=== PATIENT | female | born 1965 | race Caucasian/White ===

== ENCOUNTER 2019-03-12 15:54 | Emergency (ER) | payer BC, OTHER, SELFPAY ==
[2019-03-12 15:58] VITALS: BP 121/72; PULSE 70; RESP 14; TEMP 36.7; O2SAT 96
--- NOTE | 2019-03-12 16:34 | DI.RAD_ITS ---
EXAM: XR ANKLE RT COMPLETE INDICATION: anterior lateral ankle pain/swelling. COMPARISON: No exams were available for comparison TECHNIQUE: 2D digital imaging was performed. FINDINGS: There is soft tissue swelling around the lateral malleolus. No acute fracture or ankle mortise widen ing is seen. There are ossifications seen on the lateral view posteriorly. No talar dome defect is seen. IMPRESSION: No acute abnormality.
--- NOTE | 2019-03-12 16:46 | ED.GENADUL_ITS ---
Discharge Plan Disposition Patient Disposition: HOME Discharge Details Chief Complaint: Orthopedic Clinical Impression: Right ankle sprain Primary Care Provider: None,None ED Provider: Kiko Houston Home Meds and New Rx's Prescriptions: No Action No Known Home Meds RF: 0 Discharge Instructions Instructions: Ankle Sprain (ED) Additional Instructions: X-rays were negative for acute injury. Questionable old bony injury. No indication for prolonged casting or splinting. Keep walker boot on for the next 5 to 7 days for comfort. Use crutches as needed. Follow-up with orthopedics should symptoms persist. Ice and elevate the limb as tolerated. Referrals: Marshal Donis MD [ [facility] STAFF PHYSICIAN] - 2 weeks Discharge Data Discharge Date/Time-TO BE ENTERED AT DEPARTURE: 03/12/19 17:45 Medical Decision Making This is a nontoxic-appearing 53-year-old female presenting to the emergency department with right ankle injury. Neurovascularly intact. Vitals stable. X- rays show questionable avulsion fracture most likely chronic of the lateral malleolus. She is slightly tender over the lateral mall but more prominently tender over the ATFL. Long Ortho boot provided and crutches given. She should follow-up with orthopedics as should her pain/symptoms persist over the next 2 weeks. HPI General Date/Time Provider Initiated Documentation: 03/12/19 16:34 . HPI Narrative: Patient is a 53-year-old female with no significant past medical history who presents to the emergency department with a right ankle injury. Patient stepped off a step and onto a dog toy and inverted her right ankle. No other injuries identified. She had anterior lateral swelling of her right ankle. She is been able to ambulate with significant discomfort. She denies any numbness or tingling. She does have some tenderness along the base of her foot. Related Data Home Medications Medication Instructions Recorded Confirmed Unknown [No Known Home Meds] 03/12/19 03/12/19 Allergies Allergy/AdvReac Type Severity Reaction Status Date / Time grass pollen AdvReac Mild runny Unverified 03/12/19 16:06 nose/watery eyes Latex, Natural Rubber AdvReac Mild runny Unverified 03/12/19 16:06 nose/watery eyes tree and shrub pollen AdvReac Mild runny Unverified 03/12/19 16:06 nose/watery eyes General Stated Complaint: Orthopedic FRANCESCA: 4 Review of Systems Constitutional Constitutional: Denies weakness Cardiovascular Cardiovascular: Denies lightheadedness Musculoskeletal Musculoskeletal: Reports abnormal gait, Reports joint swelling, Denies numbness and Denies tingling Neurologic Neurologic: Reports abnormal gait, Denies numbness, Denies tingling and Denies weakness Hematologic/Lymphatic Hematologic/Lymphatic: Denies easy bleeding and Denies easy bruising [facility] Social History Smoking/Tobacco Use Status: Never Alcohol Intake: current Alcohol Intake frequency: holidays/special occasions only Drug use: Daily Substance use type: marijuana Do you feel safe at home: Yes Do you feel safe in your relationship?: Yes Exam Const General: cooperative, healthy appearing and comfortable Orientation: alert and awake Resp Effort & Inspection: normal respiratory effort and able to speak in complete sentences Cardio Pulses: normal peripheral pulses Skin Trauma: no lacerations or abrasions Neuro Gait: antalgic Motor: muscle tone normal throughout Sensory Exam: no sensory deficits noted Extrem Right lower extremity: ankle Details: tenderness Location: of the lateral malleolus and swelling Details: laterally and anteriorly and foot Details: tenderness Location: of the lateral foot Location: proximally and at the base of 5th metatarsal Course Vital Signs Vital signs: Vital Signs Temperature 36.7 C 03/12/19 15:58 Pulse 70 03/12/19 15:58 Respiratory Rate 14 03/12/19 15:58 Blood Pressure 121/72 03/12/19 15:58 Pulse Oximetry 96 03/12/19 15:58 Temperature 36.7 C 03/12/19 15:58 Temperature Source Skin 03/12/19 15:58 Pulse 70 03/12/19 15:58 Respiratory Rate 14 03/12/19 15:58 Respiratory Effort 03/12/19 16:06 Blood Pressure 121/72 03/12/19 15:58 Blood Pressure Position Sitting 03/12/19 15:58 Pulse Oximetry 96 03/12/19 15:58 Oxygen Delivery Method Room Air 03/12/19 15:58 Oxygen Flow Rate 0 03/12/19 15:58 Pain Level 0 03/12/19 15:58 Comment any pressure or weight bearing increases to 710 03/12/19 15:58
--- NOTE | 2019-03-12 16:53 | DI.RAD_ITS ---
EXAM: XR FOOT RT COMPLETE INDICATION: lateral foot pain s/p inversion injury. COMPARISON: XR ANKLE RT COMPLETE from 03/12/2019 TECHNIQUE: 2D digital imaging was performed. FINDINGS: There is an old fracture of the lateral malleolus. There is surrounding soft tissue swelling. No de finite acute fracture is seen. The remainder of the foot is unremarkable. There are no significant de generative changes. IMPRESSION: Old fracture at the tip of the lateral malleolus.
[2019-03-12 17:08] VITALS: BP 111/70; PULSE 70; O2SAT 100
--- NOTE | 2019-03-12 17:27 | DI.VRAD_ITS ---
PROCEDURE INFORMATION: Exam: XR Right Ankle Exam date and time: 03/12/2019 4:58 PM Clinical history: 53 years old, female; Other: Lateral foot pain S/P inversion injury TECHNIQUE: Imaging protocol: XR Right ankle. Views: 3 or more views. COMPARISON: No relevant prior studies available. FINDINGS: Bones/joints: No acute fracture or dislocation. There is mild deformity of the tip of the lateral meniscus is within old fracture deformity. Ankle mortise is symmetric. There appears to be a 8mm os trigonum. Inferior to this and just cephalad to the calcaneus appears be 2 osseous fragments each measuring roughly 5 mm. These are well-corticated and probably represent old fracture fragments. Soft tissues: Moderate soft tissue swelling over lateral malleolus. There is no radiopaque foreign body. IMPRESSION: Mild old fracture deformities. There is no acute fracture but there is moderate soft tissue lateral swelling. Dictated and Authenticated by: Feliciano Arredondo MD. Ordering:SHIRLEY Hoover MD
--- NOTE | 2019-03-12 17:28 | DI.VRAD_ITS ---
PROCEDURE INFORMATION: Exam: XR Right Foot Complete Exam date and time: 03/12/2019 4:58 PM Clinical history: 53 years old, female; Other: Lateral foot pain S/P inversion injury TECHNIQUE: Imaging protocol: XR Right foot. Views: 3 or more views. COMPARISON: No relevant prior studies available. FINDINGS: Bones/joints: No acute fracture or dislocation Soft tissues: Relatively high plantar arch incidentally noted. There is no radiopaque foreign body. IMPRESSION: No acute abnormality the foot. Please see report of ankle. Dictated and Authenticated by: Feliciano Arredondo MD. Ordering:SHIRLEY Hoover MD
== END 2019-03-12 17:45 | disposition home or self-care (01) ==
PROVIDERS: Emergency Provider Physician Assistant
DX: S93.401A Sprain of unspecified ligament of right ankle, initial encounter (principal); W10.8XXA Fall (on) (from) other stairs and steps, initial encounter
CPT/HCPCS: 29515; 99284; 73610; 73630; 99282; E0114; L4361